=== PATIENT | male | born 1980 | race Asian ===

== ENCOUNTER 2025-08-05 11:00 | Emergency (ER) | payer MEDICAID, SELFPAY ==
--- NOTE | 2025-08-05 11:04 | EKG_ITS ---
[facility] Test Date: 2025-08-05 Pat Name: TINO BRANCH Department: Room: - Gender: Male [employer] Officer: THEE: 1980 Requested By: ED Temporary Provider Order Number: [id number] Reading MD: ED Temporary Provider Measurements Intervals [place] Rate: 67 P: 69 CO: 130 QRS: 72 QRSD: 92 T: 66 QT: 380 QTc: 403 Interpretive Statements SINUS RHYTHM WITH SINUS ARRHYTHMIA POSSIBLE RIGHT VENTRICULAR CONDUCTION DELAY [RSR (QR) IN V1/V2] MODERATE VOLTAGE CRITERIA FOR LVH, CONSIDER NORMAL VARIANT [MEETS CRITERIA IN ONE OF: R(aVL), S(V1), R(V5), R(V5/V6)+S(V1)] No previous ECG available for comparison /[id number]/S0/[id number].pdf
[2025-08-05 11:06] VITALS: BP 133/79; PULSE 66; RESP 16; TEMP 36.9; O2SAT 99; BMI 21.1
--- NOTE | 2025-08-05 11:24 | XR_ITS ---
Examination: PA lateral chest 2 views TECHNIQUE: Upright PA lateral chest 2 views Date and time: August 05, 2025 11:59 AM, comparison 07/22/2019 INDICATIONS: Chest pain dizziness beginning one week ago. FINDINGS: Normal heart size. Lungs are clear. The osseous structures are intact IMPRESSION: No active disease
--- NOTE | 2025-08-05 11:24 | PD.EDRME ---
Rapid Medical Screening Exam RME Arrival date/time: 08/05/25 11:00 45-year-old male presents emerged department today for complaint of generalized fatigue, lightheadedness Chief Complaint: General Adult/Misc Complain Vital signs: Vital Signs Temperature 98.4 F 08/05/25 11:06 Pulse Rate 66 08/05/25 11:06 Respiratory Rate 16 08/05/25 11:06 Blood Pressure 133/79 H 08/05/25 11:06 Pulse Oximetry (%) 99 08/05/25 11:06 Oxygen Delivery Method Room Air 08/05/25 11:06
--- NOTE | 2025-08-05 11:25 | XR_ITS ---
Examination: CT brain head without contrast. 2-D sagittal coronal reconstructions Date and time of exam:August 05, 2025 1210 hours, comparison February 10, 2008 INDICATIONS: Onset generalized head pain and dizziness today CTDI: vol (mGy):50.9 DLP: (mGycm):1019 Technique: Multiple CT axial sections of the brain have been obtained, 5 mm slice thickness. Contrast has not been administered. 2-D sagittal, coronal reconstructions have been obtained Low dose protocols were performed. One or more of the following dose reduction techniques were used; automated exposure control, adjustment of the mA and/or KV according to patient size, use of iterative reconstruction technique. Findings: No significant ventricular enlargement. Intra-axial or extra-axial hemorrhage density is not seen. No mass effect or midline shift Basal cisterns are not remarkable. Fourth ventricle is midline. Cranial vault intact. Impression: Negative for acute hemorrhage, mass effect or midline shift Advise clinical correlation follow-up accordingly
[2025-08-05 11:44] LABS: Collection Type, Urine Clean Catch
[2025-08-05 11:51] LABS: Basophils # (Auto) 0.1 Thou/mm3 (0.0-0.2); Basophils % (Auto) 1 % (0-2.5); Eosinophils # (Auto) 0.2 Thou/mm3 (0.0-0.5); Eosinophils % (Auto) 2 % (0-10); Hematocrit 43.9 % (41.0-53.0); Hemoglobin 14.8 g/dL (13.5-16.0); Immature Granulocytes Auto 0.04 Thou/mm3 (0.00-0.00); Lymphocytes # (Auto) 3.1 Thou/mm3 (1.0-4.8); Lymphocytes % (Auto) 22 % (10-50); Mean Corpuscular HGB Conc 33.7 g/dl (31.0-37.0); Mean Corpuscular Hemoglobin 27.5 pg (25.0-35.0); Mean Corpuscular Volume 81 fL (80-100); Monocytes # (Auto) 1.2 Thou/mm3 (0.0-0.8); Monocytes % (Auto) 9 % (0-12); Neutrophils # (Auto) 9.2 Thou/mm3 (1.8-7.7); Neutrophils % (Auto) 67 % (37-80); Nucleated Red Blood Cell # 0.00 Thou/mm3 (0.00-0.00); Nucleated Red Blood Cell % 0 /100 WBC (0); Platelet Count 405 Thou/mm3 (140-440); RDW Standard Deviation 42.0 fL (35.1-43.9); Red Blood Count 5.39 Miln/mm3 (4.50-5.90); White Blood Count 13.8 Thou/mm3 (3.8-10.6)
[2025-08-05 12:08] LABS: Bacteria,Urine Rare; Bilirubin,Urine Negative (Negative); Blood,Urine Negative (Negative); Clarity,Urine Clear (Clear/Hazy); Color,Urine Lt-Yellow (Lt Yel-Yel); Culture Indicated,Urine Not Indicated; Glucose, Urine Negative (Negative); Ketones,Urine Negative (Negative); Leukocyte Esterase,Urine Negative (Negative); Nitrite,Urine Negative (Negative); PH,Urine 6.5 (5.0-7.0); Protein,Urine Negative (Neg - Trace); RBC,Urine < 1 /hpf (0-3); Specific Gravity,Urine 1.019 (1.001-1.035); Squamous Epithelial Cell,Urine < 1 /hpf (0-5); Urobilinogen,Urine Negative mg/dL (0.0-1.0); WBC,Urine 2 /hpf (0-5)
[2025-08-05 12:12] LABS: B-Type Natriuretic Peptide 20 pg/mL (0-100)
[2025-08-05 12:17] LABS: Alanine Aminotransferase 37 U/L (10-49); Albumin, Serum 4.6 gm/dL (3.5-5.0); Albumin/Globulin Ratio 1.6 (1.2-2.2); Alkaline Phosphatase 68 U/L (46-116); Anion Gap 7 (7-16); Aspartate Amino Transferase 14 U/L (0-34); BUN/Creatinine Ratio 8 Ratio (12-20); Bilirubin,Total 0.6 mg/dL (0.3-1.2); Blood Urea Nitrogen 6 mg/dL (9-23); Calcium 9.5 mg/dL (8.3-10.6); Calcium (Corrected) 9.5 mg/dL (8.5-10.1); Carbon Dioxide 29.2 mMol/L (20.0-31.0); Chloride 105 mMol/L (98-107); Creatinine (Component) 0.8 mg/dL (0.6-1.3); Estimated Creatinine Clearance 101.0 mL/min (>60); Free T4 (Free Thyroxine) 1.23 ng/dL (0.89-1.76); Globulin 2.8 gm/dL (2.3-3.5); Glucose 100 mg/dL (74-106); Magnesium 1.9 mg/dL (1.6-2.6); Osmolality,Calculated 278 (275-295); Potassium 4.2 mMol/L (3.4-5.1); Sodium 141 mMol/L (136-145); Thyroid Stimulating Hormone 1.48 uIU/mL (0.55-4.78); Total Protein 7.4 gm/dL (5.7-8.2); Troponin I < 0.002 ng/mL (0.0-0.045); eGFR > 60 See Note
[2025-08-05 12:17] LABS: Amphetamine/Methamp Scrn,U Negative (Negative); Barbiturate Screen,Urine Negative (Negative); Benzodiazepines Screen,Urine Negative (Negative); Benzoylecgonine Screen, Ur Negative (Negative); Fentanyl Screen,Urine Negative (Negative); Opiate Screen,Urine Negative (Negative); THC Screen,Urine Positive (Negative)
[2025-08-05 12:24] LABS: INR 1.0 (0.9-1.3); Partial Thromboplastin Time 32.5 Seconds (22.0-36.0); Prothrombin Time 11.1 Seconds (9.0-12.2)
--- NOTE | 2025-08-05 15:14 | EDNOTE_ITS ---
<Statement entered by Chikis Chaidez MD - 08/24/25 06:07> As co-signing physician, I was present and available for consult prn. I concur with the plan and care as documented by the midlevel provider. ED General RME/HPI General Chief complaint: General Adult/Misc Complain Stated complaint: DIZZINESS, FAINTNESS Time Seen by Provider: 08/05/25 13:27 Arrival date/time: 08/05/25 11:00 RME / HPI RME / HPI narrative: 45-year-old male patient with no significant medical history, came in for evaluation regarding intermittent dizziness with near syncope, severity of symptoms mild. Has been ongoing for several weeks now. Especially after doing extraneous activity. Patient denies any chest pain. Denies any focal neurologic deficit. Patient is ambulatory. Was seen by PCP and referred here for further management. Related Data Home Medications ?Medication ?Instructions ?Recorded ?Confirmed multivitamin 1 tab PO QDAY 04/17/2107/17 Allergies Allergy/AdvReac Type Severity Reaction Status Date / Time No Known Allergies Allergy Verified 07/17/24 09:09 Review of Systems Review of Systems Narrative Review of Systems: Review of system reviewed and within normal limits except mentioned in HPI ED Exam Narrative Physical exam: VITAL SIGNS: Reviewed. GENERAL APPEARANCE: Alert and interactive, follows commands, no acute distress, HEAD AND FACE: Non-traumatic. ENT: PERRL, pink conjunctivitis, eyelid no trauma, Mucous membrane moist. NECK: Supple, nontender, no nuchal rigidity. CHEST: No tenderness, no crepitus, no paradoxical movement, no retractions. LUNGS: Clear, well ventilated, symmetric, no rales, no wheezing, no ronchi, no stridor, good breath sounds bilaterally. HEART: Regular rate, regular rhythm, no murmur, no gallops. ABDOMEN: Soft, positive bowel sounds, nondistended, no guarding, nontender, no rebound, no masses, RECTAL: Deferred. GENITAL: Deferred. NEUROLOGICAL: Gross motor function intact sensory function intact, Appropriate for age. MUSCULOSKELETAL: low back nontender, full range of motion. EXTREMITIES: Nontender, full range of motion. SKIN: Color pink, dry, no rash, no lacerations, no abrasions, no contusions. LYMPHATICS: Deferred. Course Quality Measures none Orders Category Date Time Status EKG (ED ONLY) *Do not use* NOW Care 08/05/25 11:[address] head/brain wo con Stat Exams 08/05/25 11:25 Completed EKG (ED Only) Stat Exams 08/05/25 11:04 Draft XR chest 2V Stat Exams 08/05/25 11:24 Completed B-Type Natriuretic Peptide Stat Lab 08/05/25 11:38 Completed CBC Stat Lab 08/05/25 11:38 Completed Comprehensive Metabolic Panel Stat Lab 08/05/25 11:38 Completed Drug Screen,Urine Stat Lab 08/05/25 11:37 Completed Free T4 (Free Thyroxine) Stat Lab 08/05/25 11:38 Completed Magnesium Stat Lab 08/05/25 11:38 Completed Partial Thromboplastin Time Stat Lab 08/05/25 11:38 Completed Prothrombin Time with INR Stat Lab 08/05/25 11:38 Completed TSH [Thyroid Stimulating Hormone] Stat Lab 08/05/25 11:38 Completed Troponin I Stat Lab 08/05/25 11:38 Completed Urinalysis, C/S if Indicated Stat Lab 08/05/25 11:37 Completed Vital Signs Vital signs: Vital Signs Temperature 98.4 F 08/05/25 11:06 Pulse Rate 66 08/05/25 11:06 Respiratory Rate 16 08/05/25 11:06 Blood Pressure 133/79 H 08/05/25 11:06 Pulse Oximetry (%) 99 08/05/25 11:06 Oxygen Delivery Method Room Air 08/05/25 11:06 Discharge Plan Plan Patient Disposition: HOME (Self Care) Prescriptions/Referrals Prescriptions/Med Rec: No Action multivitamin Tablet 1 tab PO QDAY Referrals: Kassy Khan NP [Primary Care Provider] - In 1 week Problem List Clinical Impression: Near syncope Patient/Caregiver Discharge Instructions Discharge Activity: activity as tolerated Education Materials: ED Near-Fainting, Uncertain Cause Additional Instructions: Thank you for the opportunity for serving you today. You are stable for discharged . You are advised to: Follow-up with your PCP in 1 to 2 days Return to ED for worsening of symptoms Increase oral fluids As your PCP to refer you to pharmaceutical laboratory technician Print Language: Malian Stand Alone Forms: [facility] Award Info., Patient Portal Info Letter PA/GATE CLERK Supervising Physician PA/ERASMO Supervising Physician: MD Franki MDM Narrative MDM hospital course (for use when minimal MDM required): 45-year-old male patient with no significant medical history, came in for evaluation regarding intermittent dizziness with near syncope, severity of symp toms mild. Has been ongoing for several weeks now. Especially after doing extraneous activity. Patient denies any chest pain. Denies any focal neurologic deficit. Patient is ambulatory. Was seen by PCP and referred here for further management. Patient's reported workup is significant for slight leukocytosis could be reactive in nature, no anemia noted. CMP unremarkable troponin is normal CT scan of the head and came back unremarkable. Chest x-ray also came back unremarkable. EKG showed normal sinus rhythm, with possible arrhythmia, otherwise unremarkable. No ST segment elevation or depression noted. Results discussed with the patient. Patient verbalized no recurrence of symptoms while in the emergency room. Patient was advised to follow-up with PCP and asked for referral to pharmaceutical laboratory technician for further evaluation. Patient agrees with the plan patient is stable for discharge home. No medication prescribed. Labs Lab(s) Interpretation(s): See results MDM Imaging Imaging Interpretation(s): See results MDM Medication Administration(s) None Diagnosis Differential Diagnosis ED Complaint MDM: Vasovagal syncope dehydration, near syncope cardiac syncope Diagnoses ruled out and/or further discussions: Near-syncope intermittent
[2025-08-05 15:17] VITALS: BP 119/85; PULSE 62; RESP 14; TEMP 36.9; O2SAT 99
== END 2025-08-05 15:21 | disposition home or self-care (01) ==
PROVIDERS: Nurse Practitioner Primary Care; Emergency Provider Emergency Medicine; PCP Nurse Practitioner Family
DX: R55 Syncope and collapse (principal)
CPT/HCPCS: 36415; 70450; 71046; 80053; 80307; 81001; 83735; 83880; 84439; 84443; 84484; 85025; 85610; 85730; 93005; 99284